=== PATIENT | female | born 1965 | race Two or more races ===

== ENCOUNTER 2020-05-15 13:36 | Emergency (ER) | payer OTHER ==
[~2020-05-15] VITALS: Ht 160 cm; Wt 76.2 kg
[~2020-05-15 13:36] MED LIST: SYNTHROID50 MCG
== END 2020-05-15 20:00 | disposition home or self-care (01) ==
LOC: ER 13:36
DX: L03.114 Cellulitis of left upper limb (principal)

== ENCOUNTER 2021-07-26 08:25 | Emergency (ER) | payer OTHER ==
[~2021-07-26] VITALS: Ht 157.5 cm; Wt 74.8 kg
[2021-07-26] MEDS ORDERED: ACETAMINOPHEN650 M2 PO (17:13)
[2021-07-26] MEDS ORDERED: PEPCID AC20 MG PO (17:13)
[2021-07-26] MEDS ORDERED: LEVSIN0.125 MG PO (17:13)
== END 2021-07-26 17:58 | disposition home or self-care (01) ==
LOC: ER 08:25
DX: N20.0 Calculus of kidney (principal); K29.70 Gastritis, unspecified, without bleeding